=== PATIENT | female | born 1945 | race Caucasian/White ===

== ENCOUNTER 2023-04-24 21:25 | Emergency (ER) | payer OTHER ==
[~2023-04-24] VITALS: Ht 167.6 cm; Wt 100.7 kg
[2023-04-24] MEDS ORDERED: ATIVAN2 M1 PO (21:46)
== END 2023-04-25 01:02 | disposition home or self-care (01) ==
LOC: ER 21:26
DX: S42.213A Unspecified displaced fracture of surgical neck of unspecified humerus, initial encounter for closed fracture (principal); W10.0XXA Fall (on)(from) escalator, initial encounter; Y93.89 Activity, other specified; Y92.89 Other specified places as the place of occurrence of the external cause; Z88.0 Allergy status to penicillin
CPT/HCPCS: 72100; 73000; 73030; 73070; 73090; 96372; 99284; J1885